=== PATIENT | male | born 1990 | race Caucasian/White ===

== ENCOUNTER 2021-11-26 11:08 | Emergency (ER) | payer OTHER ==
[~2021-11-26] VITALS: Ht 185.4 cm; Wt 102.6 kg
[~2021-11-26 11:08] MED LIST: NORCO 5-325 TA1 EACH PO; WELLBUTRIN XL300 MG PO; ZOLOFT100 MG PO
[2021-11-26] MEDS ORDERED: HYDROCODON-ACE1 EA10 PO (13:26)
[2021-11-26] MEDS ORDERED: SSD25 GM TOP (13:26)
--- NOTE | 2021-12-01 17:56 | CONS ---
[facility] [address], [place] [address] Signed DATE OF CONSULTATION: 11/26/2021 TIME: 02:15 p.m. REQUESTING PHYSICIAN: Dr. Lory Koroma, [facility] PROBLEM: Left hand dorsum thermal burn. HISTORY OF PRESENT ILLNESS: This 31-year-old white man works at [employer]. He was gluing some box containers together when part of the hot glue 350 degrees draped across the dorsum of his hand. He presented to the emergency room, was evaluated by Dr. Osborne. He was found to have blistering, but no other problem. PAST MEDICAL HISTORY: Negative for diabetes or other immunocompromised. He remains in good health overall. SOCIAL HISTORY: He lives in [place], [place]. REVIEW OF SYSTEMS: He denies any shortness of breath or chest pain. Has no other known injuries or problem. He does have pain in the dorsum of his left hand in the region of his knuckles. PHYSICAL EXAMINATION: GENERAL: This is a fit, healthy, white man who looks to be in no distress currently. VITAL SIGNS: Pulse is 75, blood pressure 122 systolic. CHEST: Shows normal respiratory excursion. Pulse is regular. EXTREMITIES: Examination of the dorsum of the left hand shows wrinkled skin and blisters to a limited degree. The remaining hand is free of injury. The volar aspect is normal. ASSESSMENT AND PLAN: He has limited thermal burn to the dorsum of his hands, for which there is a partial-thickness burn. Debridement under sterile conditions with local wound care should allow for complete healing of these gorman without need for elaborate treatment such as skin grafting. I recommended debridement locally and I do not think he needs to go to the OR for this. The risks of bleeding, infection, extension of burn, and so forth were Electronically Signed By: LORY PHOENIX MD 12/01/21 9046 PATIENT NAME: IMTIAZ VELAZQUEZ CONSULTATION DATE OF : 88 REPORT #: [id number] PHYSICIAN: LORY PHOENIX MD PCP: NO PRIMARY CARE PHYSICIAN REPORT IS CONFIDENTIAL AND NOT TO BE RELEASED WITHOUT AUTHORIZATION [address] [address] [facility] MD ELZA Valdovinos/[facility] /[id number] cc: LORY KOROMA M.D. Copies: ~ Electronically Signed By: LORY PHOENIX MD 12/01/21 1756 PATIENT NAME: IMTIAZ VELAZQUEZ MANJU CONSULTATION DATE OF : 88 REPORT #: [id number] PHYSICIAN: LORY PHOENIX MD PCP: NO PRIMARY CARE PHYSICIAN REPORT IS CONFIDENTIAL AND NOT TO BE RELEASED WITHOUT AUTHORIZATION
--- NOTE | 2021-12-01 17:56 | OR ---
[facility] [address] [place], [place] [address] Signed DATE OF OPERATION: 11/26/2021 SURGEON: Lory Phoenix MD PREOPERATIVE DIAGNOSES: Thermal gorman, dorsum of left hand with partial thickness extended burn including blistering and skin. POSTOPERATIVE DIAGNOSIS: Thermal gorman, dorsum of left hand with partial thickness extended burn including blistering and skin. PROCEDURE: Sharp debridement of blisters and skin of dorsum of left hand. ANESTHESIA: None. INDICATIONS: This 31-year-old white man suffered a thermal burn from hot glue over the dorsum of his left hand with resultant blistering. I have recommended debridement under sterile conditions, anticipating local wound care. It is unlikely he will ultimately require skin grafting, however. He understands risk of bleeding, infection, functional deformity, cosmetic deformity, and so forth and wished to proceed. FINDINGS: Devitalized skin with blisters and so forth was noted over the knuckles of the skin. The burn area would be considered 8 cm x 2 cm in aggregate. DESCRIPTION OF PROCEDURE: With the patient's hand on a supportive Richards stand table, the hand was prepared with a Betadine solution and draped sterilely. Sharp dissection of blisters was undertaken with sharp dissection completely excising devitalized tissue. The underlying slick dermis had no residual findings of debris or other problem. Silvadene was applied as was sterile gauze dressing and Kerlix. He tolerated the procedure well. Lory Phoenix MD Electronically Signed By: LORY PHOENIX MD 12/01/21 1756 PATIENT NAME: IMTIAZ VELAZQUEZ OPERATIVE REPORT DATE OF : 88 REPORT #: [id number] PHYSICIAN: LORY PHOENIX MD PCP: NO PRIMARY CARE PHYSICIAN REPORT IS CONFIDENTIAL AND NOT TO BE RELEASED WITHOUT AUTHORIZATION [address] [address] Signed /[facility] /[id number] cc: Dr. Koroma Copies: ~ Electronically Signed By: LORY PHOENIX MD 12/01/21 1756 PATIENT NAME: IMTIAZ VELAZQUEZ OPERATIVE REPORT DATE OF : 88 REPORT #: [id number] PHYSICIAN: LORY PHOENIX MD PCP: NO PRIMARY CARE PHYSICIAN REPORT IS CONFIDENTIAL AND NOT TO BE RELEASED WITHOUT AUTHORIZATION
== END 2021-11-26 14:27 | disposition home or self-care (01) ==
LOC: ED 11:08
DX: T23.232A Burn of second degree of multiple left fingers (nail), not including thumb, initial encounter (principal); T23.202A Burn of second degree of left hand, unspecified site, initial encounter; T31.0 Burns involving less than 10% of body surface; X12.XXXA Contact with other hot fluids, initial encounter; F17.200 Nicotine dependence, unspecified, uncomplicated; Z79.899 Other long term (current) drug therapy; Z23 Encounter for immunization
CPT/HCPCS: 90471; 90715; 99283-25